=== PATIENT | male | born 1980 | race American Indian/Alaskan Native ===

== ENCOUNTER 2018-09-27 08:18 | Emergency (ER) | payer OTHER, MEDICAID ==
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
[2018-09-27] MEDS ORDERED: IBUPROFEN PO ONE (11:11)
[2018-09-27] MEDS ORDERED: NORCO 5/325 PO ONE (11:12)
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
[2018-09-27 12:53] VITALS: BP 120/74
== END 2018-09-27 12:54 | disposition home or self-care (01) ==
LOC: ED 08:18
DX: S09.90XA Unspecified injury of head, initial encounter (principal); S16.1XXA Strain of muscle, fascia and tendon at neck level, initial encounter; M54.5 Low back pain; V89.2XXA Person injured in unspecified motor-vehicle accident, traffic, initial encounter; Y93.89 Activity, other specified; Y99.8 Other external cause status; Y92.410 Unspecified street and highway as the place of occurrence of the external cause
CPT/HCPCS: 70450; 72100; 72125